=== PATIENT | female | born 1960 | race Caucasian/White ===

== ENCOUNTER 2019-04-25 08:57 | Day surgery (SDC) | payer OTHER ==
[~2019-04-25] VITALS: Ht 177.8 cm; Wt 102.8 kg
[2019-04-25] VITALS (10 sets, daily range): BP systolic 90–120; BP diastolic 54–78; PULSE 74–89; RESP 15–26; Ht 177.8 cm; Wt 102.8 kg
[2019-04-25] MEDS ORDERED: INSU100I33 SC (09:57)
[2019-04-25] MEDS ORDERED: LAMO200T2 ORAL (09:57)
[2019-04-25] MEDS ORDERED: SOD CHLORIDE 0.9% 1,000 ML IV SCH (10:30)
--- NOTE | 2019-04-25 12:29 | HPN ---
Date/Time of Note Date/Time of Note DATE: 04/25/19 TIME: 12:29 Interval H&P Admission Note Pt. seen H&P reviewed: No system changes CRUZITO PAUL DPM Apr 25, 2019 12:29
--- NOTE | 2019-04-25 12:51 | PREAC ---
Date/Time of Note Date/Time of Note DATE: 04/25/19 TIME: 12:49 Anesthesia Eval and Record Evaluation Time Pre-Procedure Interview DATE: 04/25/19 TIME: 12:49 Age 58 Sex female NPO: 8 hrs Preoperative diagnosis L foot infection Planned procedure I&D LEFT FOOT ABSCESS W/ DEBRIDEMENT Past Medical History Past Medical History: Includes Cardio: Dyslipidemia Endo: Diabetes Pulm: Smoking Hx GI: Obesity Psych: Anxiety, Bipolar Surgery & Anesthesia Issues No known issue Meds Anticoagulation: No Beta Jordan within 24 hr: No Reason Beta Jordan not given: Pt. not on B-Jordan Reported Medications Insulin Glargine,Hum.rec.anlog (Basaglar Kwikpen U-100) 100 Unit/1 Ml Insuln.pen, 30 UNITS SC BID 04/25/19 Lamotrigine* (Lamotrigine*) 200 Mg Tablet, 400 MG ORAL DAILY 04/25/19 Current Medications Sodium Chloride 1,000 ml @ 0 mls/hr Q0M IV ; Start 04/25/19 at 10:30 Meds reviewed: Yes Allergies Coded Allergies: morphine (Verified Allergy, Unknown, ITCHINESS, 04/25/19) Allergies Reviewed: Yes Labs/Studies Labs Reviewed: Reviewed by anesthesiologist test: N/A Studies: ECG (NSR, NML), CXR (NO ACTIVE DISEASE) Pre-procedure Exam Last vitals Vital Signs Date Temp Pulse Resp B/P (MAP) Pulse Ox O2 O2 Flow FiO2 Time Delivery Rate 04/25/19 97.5 89 16 115/68 95 09:30 (84) Airway: Adequate mouth opening, Adequate thyromental dist Mallampati: Mallampati II Teeth: Normal Lung: Normal Heart: Normal ASA Physical Status ASA physical status: 2 Emergency: None Pre-operative Attestations Prior to commencing anesthesia and surgery, the patient was re-evaluated, there was verification of: *The patient's identity *The results of appropriate recent lab work and preoperative vital signs *The above evaluation not changing prior to induction *Anesthetic plan, risk benefits, alternative and complications discussed with patient/family; questions answered; patient/family understands, accepts and wishes to proceed. MARGARITA SWAIN Apr 25, 2019 12:51
[2019-04-25] MEDS ORDERED: FENTAnyl 50 MCG/ML VIAL ONE (12:54)
[2019-04-25] MEDS ORDERED: MIDAZOLAM 1 MG/ML 2 ML INJ ONE (12:54)
[2019-04-25] MEDS ORDERED: CEFAZOLIN 1 GM INJ ONE (12:54)
[2019-04-25] MEDS ORDERED: KETOROLAC 15 MG INJ IV PRN (13:00)
[2019-04-25] MEDS ORDERED: ONDANSETRON 4 MG INJ IV PRN (13:00)
[2019-04-25] MEDS ORDERED: EPHEDrine 25 MG/5 ML SYG IV PRN (13:00)
[2019-04-25] MEDS ORDERED: LABETALOL HCL 20MG INJ IV PRN (13:00)
[2019-04-25] MEDS ORDERED: DIPHENHYDRAMINE 50 MG INJ IV PRN (13:00)
[2019-04-25] MEDS ORDERED: MEPERIDINE 25 MG INJ IV PRN (13:00)
[2019-04-25] MEDS ORDERED: HYDROmorphONE 1 MG/5 ML IV SYRINGE IV PRN ×3 (13:00)
[2019-04-25] MEDS ORDERED: FENTAnyl 50 MCG/ML VIAL IV PRN ×2 (13:00)
[2019-04-25] MEDS ORDERED: hydrALAzine 20 MG INJ IV PRN (13:00)
[2019-04-25] MEDS ORDERED: OXYCODONE/ACETAMINOPHEN (5/325) TAB PO PRN ×2 (13:00)
[2019-04-25] MEDS ORDERED: ALBUTEROL 0.083% (NEB) 2.5 MG/3 ML AMP HHN PRN (13:00)
[2019-04-25] MEDS ORDERED: LIDOCAINE 2% (MDV) 20 ML INJ ONE (13:03)
[2019-04-25] MEDS ORDERED: POLYMYXIN/BACITRACIN 1L IRRIG ONE (13:03)
[2019-04-25] MEDS ORDERED: BUPIVACAINE 0.5% (SDV) 30 ML INJ ONE (13:03)
[2019-04-25] MEDS ORDERED: LIDOCAINE 2% (SDV) 5 ML INJ ONE (13:15)
[2019-04-25] MEDS ORDERED: PROPOFOL 60 ML ONE (13:15)
--- NOTE | 2019-04-25 13:42 | PAC ---
Date/Time of Note Date/Time of Note DATE: 04/25/19 TIME: 13:41 Post-Anesthesia Notes Post-Anesthesia Note Last documented vital signs Vital Signs Date Temp Pulse Resp B/P (MAP) Pulse Ox O2 O2 Flow FiO2 Time Delivery Rate 04/25/19 97.5 98 89 80 16 16 115/68 95 95 RA 09:30 133 (84) 105/ 7 76 Activity: WNL Respiratory function: WNL Cardiovascular function: WNL Mental status: Baseline Pain reasonably controlled: Yes Hydration appropriate: Yes Nausea/Vomiting absent: Yes MARGARITA SWAIN Apr 25, 2019 13:42
--- NOTE | 2019-04-25 13:58 | OPR ---
Date/Time of Note Date/Time of Note DATE: 04/25/19 TIME: 13:58 Operative Report Procedure Date: Apr 25, 2019 Preoperative Diagnosis Abscess left foot Cellulitis left big toe Diabetes mellitus Peripheral neuropathy Peripheral vascular disease Lack medical compliance Postoperative Diagnosis Abscess left foot Cellulitis left big toe Diabetes mellitus Peripheral neuropathy Peripheral vascular disease Lack medical compliance Operation/Procedure Performed Incision and drainage of the left hallux Excisional sharp debridement of left hallux Excision of open wound of the left foot Surgeon Blayne Paul DPJoey Nurse Ob None Anesthesia Type: general Estimated Blood Loss: minimal Transfusion none Specimen None Grafts/Implants none Complications none Pt Condition Post Procedure: stable Disposition: PACU Indications This is a pleasant 58-year-old female patient who has been suffering with 1-2 weeks of swelling and redness in her left hallux with draining pus and open wound on the bottom of the foot for quite some time. Proposed surgery is incision and drainage with sharp debridement of necrotic tissue of the left foot. Risks and complications of this type of surgery was discussed with patient in great detail. Risks and complications discussed include, but are not limited to, postoperative infection, postoperative pain, chronic pain and disability, hardware failure, failure of surgery to correct the problem, need for additional surgical procedures, deep venous thrombosis, gait disturbance, problems with shoegear, limitation of activities, limb loss and loss of life. Patient understands the discussion and agrees to the procedure. An informed consent was obtained, signed and placed in the chart. No guarantee or warrantee was given or implied as to the outcome of the procedure either in verbal or written form. Procedure Description The patient was seen in the preoperative area. Proposed surgery was discussed. Risks and complications discussed in detail. Opportunity was given to patient to ask questions and all questions were answered. Patient acknowledges understanding of the discussion and agrees to the procedure. The patient was then taken to the operating room and was placed on the operative table in the supine position. Patient was placed under general anesthesia. The left lower extremity was scrubbed, prepped and draped in the usual aseptic manner. Attention was directed to the left hallux. A small incision was made over the dorsal medial aspect of the hallux directly over the area of abscess formation. Purulent drainage was noted and cultured. Debridement done to bleeding subcu tinged tissue using a rongeur. Next, the plantar ulcer was excised using a #10 blade. Both wounds were then flushed with copious muscle sterile normal saline. I closed the plantar wound primarily using 0 Prolene in simple suture technique. The wound on the dorsal was packed with iodoform packing. Next, 10 cc of 0.5% Marcaine plain was injected into the left foot. Sterile dressing was applied to the left foot. The patient tolerated procedure anesthesia well. She was transferred to the recovery room with vital signs stable and vascular status intact to the left foot. The patient will be sent home after postoperative monitoring. Postop orders were written. Patient will be seen in 1 week in my office for postoperative care. BLAYNE PAUL DPM Apr 25, 2019 13:58
--- NOTE | 2019-04-25 14:00 | OPPN ---
Date/Time of Note Date/Time of Note DATE: 04/25/19 TIME: 13:58 Operative Report Preoperative Diagnosis Left foot fifth MPJ abscess Left foot chronic open wound Diabetes mellitus Peripheral neuropathy Severe forefoot deformities Postoperative Diagnosis Left foot fifth MPJ abscess Left foot chronic open wound Diabetes mellitus Peripheral neuropathy Severe forefoot deformities Operation/Procedure Performed Incision and drainage of left foot abscess Excision of chronic open wound with debridement and primary closure Surgeon see signature line assistant professor of nursing None Anesthesia: MAC Estimated blood loss: minimal Transfusion Required none Specimen Culture of drainage of left foot abscess Wound left foot Grafts/Implants none Complications none CRUZITO PAUL DPM Apr 25, 2019 14:00
== END 2019-04-25 15:25 | disposition home or self-care (01) ==
LOC: SDS 08:57
PROVIDERS: ATTEND Podiatrist Foot & Ankle Surgery
DX: L02.612 Cutaneous abscess of left foot (principal); L03.032 Cellulitis of left toe; E11.42 Type 2 diabetes mellitus with diabetic polyneuropathy; E11.51 Type 2 diabetes mellitus with diabetic peripheral angiopathy without gangrene; E11.621 Type 2 diabetes mellitus with foot ulcer; L97.529 Non-pressure chronic ulcer of other part of left foot with unspecified severity; Z91.14 Patient's other noncompliance with medication regimen
CPT/HCPCS: 10060; 11420; 82962; 87070; 87075; 88304; J0690; J2250; J3010; Z7512; Z7610